=== PATIENT | female | born 1955 | race Caucasian/White ===

== ENCOUNTER 2022-08-17 07:53 | Day surgery (SDC) | payer BC, SELFPAY ==
--- NOTE | 2022-08-17 | COLBX_PTH ---
PATIENT: JANETTE TORRES LOC: EN U#:[id number] AGE/SX: 66/F ROOM: RE08/17/[address]: Dr. Donald Quintana DO : 1955 BED: DIS: 08/17/2022 SPEC #: [id number] RECD: 08/17/22 11:50 STATUS: JENNIFER REIrish #: [id number] BRIONNA: 08/17/22 00:[address]: Donald Quintana DEPT: SURGICAL PATHOLOGY RECD BY: Stanislav Sorensen ENTERED: 08/17/22 11:50 SP TYPE: COLON BX OTHR DR: Desmond Carmichael, [employer] SERVICER-C Tissues: Cecum, NOS Procedures: Surgery Specimen Level IV HEADER OPERATION: Colonoscopy ? open access (MAC) biopsies PRE-OP DIAGNOSIS: Screening TISSUE SUBMITTED: Ileocecal anastomosis biopsy MICROSCOPIC DIAGNOSIS Ileocecal anastomotic site, biopsy: Minimal nonspecific chronic inflammation. AM:gregory 08/18/2022 MICROSCOPIC DESCRIPTION Slides are reviewed. GROSS DESCRIPTION Received in fixative is one container labeled with the patient's name and designated ileocecal anastomosis biopsy. The specimen consists of multiple irregular fragments of light fierro soft tissue that in aggregate measure 1 x 0.8 x 0.1 cm. The specimen is totally submitted in one cassette. / AM:gregory 08/17/2022 TC:5 CPT: 26470
[2022-08-17] MEDS: Lactated Ringers 1,000 ML 15 ML IV (08:25)
[2022-08-17 08:26] VITALS: BP 153/84; PULSE 76; RESP 18; TEMP 36.2; O2SAT 100; BMI 43.7
--- NOTE | 2022-08-17 08:29 | PCM.HP.STD ---
[facility] - General General Date of Admission: 08/17/22 Date of Service: 08/17/22 Chief Complaint: Colon cancer HPI Narrative JANETTE TORRES, is a 66 F who presents for a follow-up colonoscopy after diagnosis of colon cancer. She the past medical history of gout, hypertension. She was diagnosed with an colon cancer 2 years ago and underwent resection with primary anastomosis. She is not have any problems abdominal pain. She denies any bleeding. She denies any nausea, vomiting or diarrhea. [facility] Medical History (Updated 08/15/22 @ 08:29 by Maria Antonia Plunkett) Alcohol use Anemia Atypical mole Back pain Bicuspid aortic valve Cancer Cardiology follow-up encounter Colon polyp DDD (degenerative disc disease) Decreased GFR Fatty liver Former smoker Gout Gout Hemorrhoids History of cardiovascular stress test History of echocardiogram Hx of colon cancer, stage I Hyperlipidemia Leg cramps Mitral regurgitation Morbid obesity Non-smoker Prediabetes Pulmonary HTN Shortness of breath on exertion Spinal stenosis Tachycardia Wears glasses Home Medications metoprolol tartrate 25 mg tablet 25 mg PO BID 12/12/16 [History Last Taken 08/17/22] Ibuprofen [Motrin] 800 mg PO TID PRN PRN pain or cramping #30 tabs 07/28/17 [Rx Last Taken Unknown] cholecalciferol (vitamin D3) 25 mcg (1,000 unit) capsule 25 mcg PO DAILY 06/10/22 [History Last Taken Unknown] colchicine 0.6 mg tablet 0.6 mg PO PRN PRN GOUT 06/10/22 [History Last Taken Unknown] multivitamin 1 tab PO DAILY 06/10/22 [History Last Taken Unknown] Allergy/AdvReac Type Severity Reaction Status Date / Time No Known Allergies Allergy Verified 08/17/22 08:21 Family History (Updated 06/10/22 @ 10:59 by Lilian Archer) Mother Arthritis CAD (coronary artery disease) CVA (cerebral vascular accident) Father CVA (cerebral vascular accident) Cardiovascular disease Surgical History (Updated 08/12/22 @ 11:58 by Maria Antonia Plunkett) H/O cervical discectomy History of appendectomy History of colectomy History of dilation and curettage History of lumpectomy History of tonsillectomy Social History (Updated 06/10/22 @ 11:00 by Lilian Archer) Smoking Status: Never smoker ROS Review of Systems ROS Unobtainable: other Constitutional Constitutional: Denies fatigue, fever(s), poor appetite, weight gain or weight loss ENT HEENT: Denies mouth lesions Cardiovascular Cardiovascular: Denies abdominal bloating, abdominal edema or abdominal pain Respiratory/Chest Respiratory/Chest: Denies change in mental status, change in phlegm color, chest congestion or chest tightness Gastrointestinal Gastrointestinal: Denies belching, bloating, change in bowel habits, change in stool character, chewing difficulty, coffee ground emesis, constipation, cramping, diarrhea, dyspepsia, dysphagia, early satiety, excessive flatus, fecal incontinence, heartburn, hematemesis, hematochezia, hemorrhoids, loose stools, melena, nausea, odynophagia, rectal bleeding, tenesmus, vomiting or weight changes Genitourinary Genitourinary: Denies abdominal discomfort, burning urination or itching Musculoskeletal Musculoskeletal: Reports as per HPI; Denies muscle weakness or myalgias Integumentary Integumentary: Denies jaundice Neurologic Neurologic: Denies lack of coordination or weakness Psychiatric Psychiatric: Denies confusion, depression, memory loss, mood swings, paranoia or suicidal ideation Endocrine Endocrinology: Denies systems reviewed and no addt'l complaints, except as documented Hematologic/Lymphatic Hematologic/Lymphatic: Denies anemia, easy bleeding, easy bruising or lymphadenopathy Allergic/Immunologic Allergic/Immunologic: Denies systems reviewed and no addt'l complaints, except as documented Physical Exam Const alert General Appearance: cooperative Orientation / Consciousness: oriented to person HEENT hearing grossly normal bilaterally Head and Scalp: normal to inspection Face and Sinus: face symmetric Nose: external nose normal Mouth: oral and palatal mucosa normal Eyes conjunctivae normal General Eye: normal appearance of both eyes Neck full ROM General: normal visual inspection Lymph Lymphatic: no lymphadenopathy noted Chest inspection of chest normal and palpation of chest normal Chest: symmetrical chest wall rise Resp normal respiratory effort Effort and Inspection: able to speak in complete sentences Cardio regular rate GI non-distended Percussion: normal to percussion Rectal Exam: deferred Neuro Speech: speech normal Gait (Neuro): normal gait Assessment & Plan Assessment/Plan (1) Encounter for screening for malignant neoplasm of colon: PLAN: She will undergo colonoscopy. She was explained alternatives, risk, benefits including not withstanding bleeding, infection, sepsis, perforation, need for emergent surgery . She will have an ASA of 1.
[2022-08-17 09:15] VITALS: BP 153/84; BP 93/56; PULSE 62; RESP 16; TEMP 36.4; O2SAT 96
--- NOTE | 2022-08-17 09:17 | OP.COLON_ITS ---
Patient Name: Laquita Gonzalez Procedure Date: 08/17/2022 8:48 AM Date of : 1955 Age: 66 Procedure: Colonoscopy Indications: Follow-up of colon cancer Providers: Donald Quintana DO Medicines: Monitored Anesthesia Care Patient Profile: This is a 66 year old female. Refer to note in patient chart for documentation of history and physical. Last Colonoscopy: within the past 3 years. Complications: No immediate complications. Procedure: Pre-Anesthesia Assessment: - Prior to the procedure, a History and Physical was performed, and patient medications and allergies were reviewed. The patient is competent. The risks and benefits of the procedure and the sedation options and risks were discussed with the patient. All questions were answered and informed consent was obtained. Patient identification and proposed procedure were verified by the physician in the pre-procedure area. Mental Status Examination: alert and oriented. Airway Examination: normal oropharyngeal airway and neck mobility. Respiratory Examination: clear to auscultation. CV Examination: normal. Prophylactic Antibiotics: The patient does not require prophylactic antibiotics. Prior Anticoagulants: The patient has taken no previous anticoagulant or antiplatelet agents. After reviewing the risks and benefits, the patient was deemed in satisfactory condition to undergo the procedure. The anesthesia plan was to use monitored anesthesia care (MAC). Immediately prior to administration of medications, the patient was re-assessed for adequacy to receive sedatives. The heart rate, respiratory rate, oxygen saturations, blood pressure, adequacy of pulmonary ventilation, and response to care were monitored throughout the procedure. The physical status of the patient was re-assessed after the procedure. After I obtained informed consent, the scope was passed under direct vision. Throughout the procedure, the patient's blood pressure, pulse, and oxygen saturations were monitored continuously. The Colonoscope was introduced through the anus and advanced to the terminal ileum. The colonoscopy was performed without difficulty. The patient tolerated the procedure well. The quality of the bowel preparation was good. Scope In: 9:00:20 AM Scope Withdrawal Time 0 hours 7 minutes 8 seconds Scope Out: 9:09:56 AM Total Procedure Duration Time 0 hours 9 minutes 36 seconds Findings: The perianal and digital rectal examinations were normal. There was evidence of a prior end-to-end ileo-colonic anastomosis in the ascending colon. This was patent and was characterized by healthy appearing mucosa. The anastomosis was traversed. Biopsies were taken with a cold forceps for histology. Verification of patient identification for the specimen was done. Estimated blood loss was minimal. The terminal ileum appeared normal. Impression: - Patent end-to-end ileo-colonic anastomosis, characterized by healthy appearing mucosa. Biopsied. - The examined portion of the ileum was normal. Recommendation: - Discharge patient to home. - Resume previous diet. - Continue present medications. - Await pathology results. - Repeat colonoscopy in 3 years for surveillance. Procedure Code(s): --- Professional --- 83648, Colonoscopy, flexible; with biopsy, single or multiple CPT copyright 2017 [employer]. All rights reserved. The codes documented in this report are preliminary and upon manager asset review may be revised to meet current compliance requirements. Donald Quintana DO 08/17/2022 9:16:45 AM This report has been signed electronically. Number of Addenda: 0 Note Initiated On: 08/17/2022 8:48 AM
[2022-08-17 09:20] VITALS: BP 153/84; BP 99/62; PULSE 71; RESP 16; O2SAT 98
[2022-08-17 09:25] VITALS: BP 103/71; BP 153/84; PULSE 56; RESP 15; O2SAT 100
[2022-08-17 09:30] VITALS: BP 106/70; BP 153/84; PULSE 62; RESP 16; TEMP 36.4; O2SAT 98
[2022-08-17 09:46] VITALS: BP 153/84
== END 2022-08-17 10:01 | disposition home or self-care (01) ==
LOC: EN 08:02 → AC 08:02
PROVIDERS: PCP Nurse Practitioner Family; Referring Provider Nurse Practitioner Family; Visit Provider Internal Medicine Gastroenterology
PROC: 0DJD8ZZ Inspection of Lower Intestinal Tract, Via Natural or Artificial Opening Endoscopic (ICD-10-PCS; CPT 45378; principal; 2022-08-17 08:55)
DX: Z12.11 Encounter for screening for malignant neoplasm of colon (principal); E66.01 Morbid (severe) obesity due to excess calories; Z68.41 Body mass index [BMI] 40.0-44.9, adult; I10 Essential (primary) hypertension; E78.5 Hyperlipidemia, unspecified; R73.03 Prediabetes; M10.9 Gout, unspecified; Z79.899 Other long term (current) drug therapy; Z87.891 Personal history of nicotine dependence; Z85.038 Personal history of other malignant neoplasm of large intestine
CPT/HCPCS: 45380; 88305; J7120; J2405